=== PATIENT | male | born 1985 | race African-American/Black ===

== ENCOUNTER 2016-08-13 12:41 | Emergency (ER) | payer MEDICAID ==
[~2016-08-13] VITALS: Ht 185.4 cm; Wt 93.0 kg
[~2016-08-13 12:41] MED LIST: CYCLOBENZAPRINE10 MG ORAL; IBUPROFEN600 MG ORAL
[2016-08-13] MEDS ORDERED: MIRALAX119 GM PO (13:09)
[2016-08-13] MEDS ORDERED: IBUPROFEN600 MG ORAL (13:09)
[2016-08-13] MEDS ORDERED: NORCO 5-325 TA1 EAC1 ORAL (13:09)
[2016-08-13 13:15] VITALS: BP 138/84
[2016-08-13 13:16] VITALS: BP 142/99
--- NOTE | 2016-08-13 14:12 | Emergency Room Report ---
History of Present Illness General Chief Complaint: Pain Source: Patient Present Illness [facility] The patient is a 30-year-old male presenting for rectal pain. The patient states that he had a rectal cyst removed 2 months prior without any complications. He has had followups with the surgeon. The patient was given a prescription for Percocet and antibiotics which he finished. The patient states pain medication ran out 2 weeks prior and he has been using Motrin and Tylenol at home which have not been helping. Pain is described as a 10 out of 10 dull ache to the rectum and is worse with bowel movements. He denies constipation or diarrhea. Pain does not radiate. He denies any other symptoms including nausea, vomiting, fever, chills, rash, dysuria, back pain Allergies: Coded Allergies: No Known Allergies (Unverified , 09/24/15) Patient History Past Medical History: see triage record Pertinent Family History: none Reviewed Nursing Documentation: PMH: Agreed, PSxH: Agreed Nursing Documentation-PMH Past Medical History: No Stated History Review of Systems All Other Systems: negative except mentioned in HPI Physical Exam Vital Signs Date Time Temp Pulse Resp B/P Pulse Ox O2 Delivery O2 Flow Rate FiO2 08/13/16 12:46 98.1 91 21 142/99 98 Room Air Sp02 EP Interpretation: reviewed, normal General Appearance: no apparent distress, alert, GCS 15, non-toxic Head: normocephalic, atraumatic Eyes: bilateral eye PERRL, bilateral eye normal inspection Respiratory: chest non-tender, lungs clear, normal breath sounds, speaking full sentences Gastrointestinal: normal bowel sounds, non tender, soft, non-distended, no guarding, no rebound Rectal: normal rectal tone, tenderness - bandar-rectal Genitourinary: normal inspection, no CVA tenderness Musculoskeletal: back normal, gait/station normal, normal range of motion, non- tender Neurologic: alert, oriented x3, responsive, motor strength/tone normal, sensory intact, normal gait, speech normal Psychiatric: judgement/insight normal, memory normal, mood/affect normal, no suicidal/homicidal ideation Skin: normal color, no rash, warm/dry, well hydrated Lymphatic: no adenopathy Medical Decision Making PA Attestation Dr. Terry is my supervising physician. Patient management was discussed with my supervising physician Diagnostic Impression: Primary Impression: Rectal pain ER Course The patient is a 30-year-old male presenting for rectal pain. Differential diagnoses considered include but not limited to internal hemorrhoid , external hemorrhoid, cellulitis, abscess, rectal prolapse PE: vitals WNL. NAD Abdomen is soft and nontender. Rectal exam: Normal tone. No edema. No erythema. No hemorrhoids. Surgical scar is seen. Well-healed. No discharge or bleeding. Tender to palpation The patient is discharged home with pain medication and MiraLAX. He will followup with primary doctor and also surgeon. ER precautions are given Last Vital Signs Date Time Temp Pulse Resp B/P Pulse Ox O2 Delivery O2 Flow Rate FiO2 08/13/16 13:16 98.1 21 142/99 98 Room Air 08/13/16 13:15 94 Status: improved Disposition: HOME, SELF-CARE Condition: Improved Scripts Hydrocodone Bit/Acetaminophen 5-325* (NORCO 5-325 TABLET*) 1 Each Tablet 1 TAB ORAL Q6HR Y for For Pain, #10 TAB Prov: ROMEO WHELAN P.A. 08/13/16 Polyethylene Glycol 3350 (MIRALAX) 119 Gm Powder 17 GM PO DAILY, #119 GM Prov: TEREMILIANAANROMEO P.A. 08/13/16 Ibuprofen* (MOTRIN*) 600 Mg Tablet 600 MG ORAL Q8H Y for For Pain, #30 TAB 0 Refills Prov: ROMEO WHELAN P.A. 08/13/16 Referrals: [facility],REFERRING (PCP) Patient Instructions: Pain Medicine Instructions Additional Instructions: I discussed my findings with the patient. All questions and concerns have been answered. Treatment and medication compliance have been addressed. I advised the patient that they need to follow up with PMD in 3-5 days. Return to ED if symptoms worsen, new symptoms arise, or if needed for any reason. Patient verbalized understanding of discharge instructions. ROMEO WHELAN Aug 13, 2016 14:12
== END 2016-08-13 13:16 | disposition home or self-care (01) ==
LOC: EMR 13:10
DX: K62.89 Other specified diseases of anus and rectum (principal); Z98.890 Other specified postprocedural states
CPT/HCPCS: 99284

== ENCOUNTER 2016-09-28 14:06 | Emergency (ER) | payer MEDICAID ==
[~2016-09-28] VITALS: Ht 182.9 cm; Wt 92.1 kg
[~2016-09-28 14:06] MED LIST changes: +MIRALAX119 GM PO; +NORCO 5-325 TA1 EAC1 ORAL
[2016-09-28 14:33] VITALS: BP 142/87
[2016-09-28] MEDS ORDERED: Norco 10mg/325mg tab ORAL ONE (14:45)
[2016-09-28] MEDS ORDERED: BACTRIM DS TAB1 EAC1 ORAL (14:50)
[2016-09-28] MEDS ORDERED: NORCO 10-325 T1 EACH ORAL (14:50)
--- NOTE | 2016-09-28 14:50 | Emergency Room Report ---
History of Present Illness General Chief Complaint: Skin Rash/Abscess Source: Patient Present Illness HPI 30 y/o male c/o rectal pain x 2 weeks. States that 2 months ago he had a bandar- rectal cyst surgically removed in [place]. States he came to [facility] for evaluation and was told it was healing well 1 month after his sx and was then seen by Gen Camarena in [place] who also confirmed wound was healing well. He was informed he was going to be having residual pain and that would be normal. States that two weeks ago he started having the pain in his bandar-rectal area again. States he started to have a stomach flu 4 days ago with diarrhea which then exacerbated his bandar-rectal sxs. States that he has moderate to severe pain in the bandar-rectal area and believes he's developing another abscess. Patient is here for pain mgmt until he can get back to his PCP. Allergies: Coded Allergies: No Known Allergies (Unverified , 09/24/15) Patient History Past Medical History: see triage record Past Surgical History: other Pertinent Family History: none Immunizations: UTD Reviewed Nursing Documentation: PMH: Agreed, PSxH: Agreed Nursing Documentation-PMH Past Medical History: No History, Except For Review of Systems All Other Systems: negative except mentioned in HPI Physical Exam Vital Signs Date Time Temp Pulse Resp B/P Pulse Ox O2 Delivery O2 Flow Rate FiO2 09/28/16 14:08 98.4 71 18 139/89 98 Room Air Sp02 EP Interpretation: reviewed, normal General Appearance: no apparent distress, alert, GCS 15, non-toxic Head: normocephalic, atraumatic Eyes: bilateral eye normal inspection ENT: normal ENT inspection, hearing grossly normal, no angioedema, normal voice Neck: full range of motion Respiratory: chest non-tender, lungs clear, normal breath sounds, speaking full sentences Cardiovascular #1: regular rate, rhythm, no edema Gastrointestinal: non tender, soft Rectal: normal rectal tone, mass - tender cystic like mass left bandar-rectal area at 9 o'clock approx 1cm. There is no induration of the skin, warmth, drainage, or erythema Musculoskeletal: back normal, gait/station normal, normal range of motion, non- tender, calf tenderness Neurologic: alert, oriented x3, responsive, motor strength/tone normal, sensory intact, speech normal Skin: normal color, warm/dry, well hydrated Lymphatic: no adenopathy Medical Decision Making PA Attestation Dr. Ovalles my supervising physician with whom patient management has been discussed with. Diagnostic Impression: Primary Impression: Cyst ER Course Pt. presents to the ED c/o bandar-rectal pain Ddx considered but are not limited to abscess, hemorrhoid, cyst, cellulitis Vital signs: are WNL, pt. is afebrile H&PE are most consistent with reactive cyst ORDERS: none required at this time, the diagnosis is clinical ED INTERVENTIONS: [place] 10 DISCHARGE: At this time pt. is stable for d/c to home. Patient advised to f/u with Gen Sx for removal of cyst within next 3-5 days for management of symptoms. Will provide printed patient care instructions, and any necessary prescriptions. Care plan and follow up instructions have been discussed with the patient prior to discharge. Last Vital Signs Date Time Temp Pulse Resp B/P Pulse Ox O2 Delivery O2 Flow Rate FiO2 09/28/16 14:33 98.5 73 17 142/87 99 Room Air Status: unchanged Disposition: HOME, SELF-CARE Condition: Stable Scripts Hydrocodone Bit/Acetaminophen 10-325* (NORCO 10-325*) 1 Each Tablet 1 TAB ORAL Q8H Y for For Pain, #15 TAB 0 Refills PRN PAIN Prov: KAVEH APARICIO.A. 09/28/16 Trimethoprim/Sulfamethoxazole 160/800* (BACTRIM DS TABLET*) 1 Each Tablet 1 TAB ORAL TWICE A DAY for 10 Days, #20 TAB Prov: ANA APARICIOM P.A. 09/28/16 Additional Instructions: Take medication as directed. Patient instructed medication as needed for pain. Patient to return for wound check in 2-3 days either here, urgent care or with PCP. Patient is to keep the infected area clean and dry. They can take a shower or bath, but be sure to pat the area dry with a towel afterward. Patient instructed to not put any antibiotic ointments or creams on the area. Patient should come back sooner if their symptoms do not get better within 3 days of starting treatment or if the red area gets bigger, more swollen, or more painful. KAVEH APARICIO Sep 28, 2016 14:50
[2016-09-28 14:55] VITALS: BP 142/87
== END 2016-09-28 14:55 | disposition home or self-care (01) ==
LOC: EMR 14:31
DX: K62.89 Other specified diseases of anus and rectum (principal)
CPT/HCPCS: 99284